=== PATIENT | male | born 1950 | race Caucasian/White ===

== ENCOUNTER 2019-10-19 09:42 | Outpatient (RCR) | payer OTHER, MEDICARE ==
[2019-10-15 10:43] VITALS: BP 136/74
[2019-10-15 11:13] LABS: BASOPHILS % (AUTO) 0 % (0-10); EOSINOPHILS # (AUTO) 0.1 10^3/uL (0.0-0.3); EOSINOPHILS % (AUTO) 2 % (0-10); HEMATOCRIT 42 % (40-54); HEMOGLOBIN 14.1 G/DL (13.3-17.7); LYMPHOCYTES # (AUTO) 1.4 X 10^3 (1.0-4.0); LYMPHOCYTES % (AUTO) 21 % (12-44); MEAN CORPUSCULAR HEMOGLOBIN 31 PG (25-34); MEAN CORPUSCULAR HGB CONC 34 G/DL (32-36); MEAN CORPUSCULAR VOLUME 93 FL (80-99); MEAN PLATELET VOLUME 12.3 FL (7.4-10.4); MONOCYTES # (AUTO) 0.6 X 10^3 (0.0-1.0); MONOCYTES % (AUTO) 8 % (0-12); NEUTROPHILS # (AUTO) 4.7 X 10^3 (1.8-7.8); NEUTROPHILS % (AUTO) 69 % (42-75); PLATELET COUNT 146 10^3/uL (130-400); RED CELL DISTRIBUTION WIDTH 13.9 % (10.0-14.5); WHITE BLOOD COUNT 6.9 10^3/uL (4.3-11.0)
[2019-10-15 11:31] LABS: BUN/CREATININE RATIO 14; CARBON DIOXIDE 24 MMOL/L (21-32); CHLORIDE 109 MMOL/L (98-107); CREATININE SERUM 0.72 MG/DL (0.60-1.30); GFR ESTIMATED > 60; GLUCOSE 130 MG/DL (70-105); POTASSIUM 3.9 MMOL/L (3.6-5.0); SODIUM 141 MMOL/L (135-145)
--- NOTE | 2019-10-15 11:41 | Diagnostic Imaging Report ---
INDICATION: Preop for a deviated nasal septum. Time of exam 11:18 AM No prior studies are available for comparison. The heart size is normal. The pulmonary vascularity is unremarkable. The lungs are clear. No infiltrate, effusion or pneumothorax is detected. Impression: No acute cardiopulmonary process is detected. Dictated by: Dictated on workstation # [id number]
[~2019-10-19] VITALS: Ht 165 cm; Wt 92.1 kg
[~2019-10-19 09:42] MED LIST: ALLO300T2 PO; AMLO10TA7 PO; ASPI-586 PO; CHOL100048 PO; CYAN250010 PO; LANS30CA PO; LISI10TA2 PO; METO100T12 PO; MULT-1136 PO; MYCO500T3 PO; NAPR220T66 PO; SIMV80TA21 PO; TACR1CAP22 PO
== END 2019-10-19 15:02 | disposition home or self-care (01) ==
LOC: PREOP 09:42
PROVIDERS: ATTEND Otolaryngology Otolaryngology/Facial Plastic Surgery
DX: Z01.810 Encounter for preprocedural cardiovascular examination (principal); Z01.811 Encounter for preprocedural respiratory examination; Z01.812 Encounter for preprocedural laboratory examination; Z11.2 Encounter for screening for other bacterial diseases; J35.3 Hypertrophy of tonsils with hypertrophy of adenoids; J34.2 Deviated nasal septum; J34.89 Other specified disorders of nose and nasal sinuses; Z11.59 Encounter for screening for other viral diseases
CPT/HCPCS: 36415; 71046; 80048; 85025; 87081; 87635; 93005

== ENCOUNTER 2019-10-22 07:18 | Day surgery (SDC) | payer OTHER, MEDICARE ==
[~2019-10-22] VITALS: Ht 165 cm; Wt 92.1 kg
[2019-10-22] VITALS (9 sets, daily range): BP systolic 134–154; BP diastolic 54–85
[2019-10-22] MEDS ORDERED: LACTATED RINGERS 1,000 ML IV PRN (07:25)
--- OUTSIDE RECORDS SUMMARY | 2019-10-22 07:26 | XMS REPORT ---
Author [facility] Medic al StaffMILENA Organization [facility] Address [address] [place], [place] [address] Phone [phone] Summary purpose TRANSITION OF CARE AUTO GENERATION Chief Complaint and Reason for Visit No authorized Reason for Visit (Admitting Diagnosis) is available for this visit . Problem list No authorized problems tracked for continuity of care are available for this vis it. Encounters No authorized problems tracked for encounter diagnoses are available for this vi sit. Medications No medications recorded for this patient visit Allergies, adverse reactions, alerts No allergy information is available for this patient. Immunizations No immunizations recorded for this patient visit Relevant diagnostic tests and/or laboratory data RESULTS Radiology Results [id number] MRI L-SPINE W/O CONT PACs Image DATE OF EXAM: Nov 18 2015 MRI 0085-MRI L SPINE WO CONT RAST : RADIOLOGY REPORT DATE OF SERVICE: 11/18/15 HISTORY: Low back pain and right leg radiculopathy. MRI LUMBAR [id number] HOURS Imaging was performed in the sagittal an d axial planes. No contrast was administered. The lumbar vertebrae show normal height and alignment. There is no fracture, spondylolysis, or spondylolist hesis. There are no lumbar marrow lesions. The upper sacrum is norm al. The conus medullaris terminates at the upper aspect of L1. At T12-L1 and L1-L2, there are Schmorl's node changes in the endplates. No posterior disc protrusion or herniati on is present. There is no canal stenosis, foraminal stenosis, or nerve r oot effacement. At L2-L3, there is disc narrowing. There are bilateral paracentral disc protrusions at this level producing effa cement of the ventral aspect of the subarachnoid space. There is mild de generative facet arthrosis. There is borderline foraminal narrowing on the left side. At L3-L4, the disc contour is normal. Th ere is moderate degenerative facet arthrosis. There is no canal steno sis, nerve root effacement, or foraminal impingement. At L4-L5, there is disc narrowing and mo derate broad posterior disc protrusion/bulging. There is moderate de generative facet arthrosis. There is no canal stenosis. There is deg enerative right-sided foraminal stenosis. At L5-S1, there is fairly large central and right paracentral disc herniation effacing the right S1 nerve r oot. There is also impingement in the right foramen. There is moderate degenerative facet arthrosis. Spinal canal is mildly stenotic related to the degenerative changes and protruding disc. 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 IMPRESSION: 1. Multilevel degenerative disc and face t changes. Bilateral paracentral disc protrusions at L2-L3 without nerve root effacement. Borderline left-sided foraminal stenosis at this level. 2. Diffuse disc bulge at L4-L5 with dege nerative facet arthrosis. Degenerative foraminal stenosis greatest on the right. 3. Large central and right paracentral d isc herniation at L5- S1 producing nerve root effacement. Right-s ided foraminal stenosis present. 4. Incidentally noted right pelvic kidney. David Escamilla MD MWYvonne/nh/ 13:53:00 / 11/01 13:56:28 cc:Miguel Law This document has been electronically Signed by: On: DATE OF EXAM: Nov 18 2015 MRI 0085-MRI L SPINE WO CONT RAST : RADIOLOGY REPORT DATE OF SERVICE: 11/18/15 HISTORY: Low back pain and right leg radiculopathy. MRI LUMBAR [id number] HOURS Imaging was performed in the sagittal an d axial planes. No contrast was administered. The lumbar vertebrae show normal height and alignment. There is no fracture, spondylolysis, or spondylolist hesis. There are no lumbar marrow lesions. The upper sacrum is norm al. The conus medullaris terminates at the upper aspect of L1. At T12-L1 and L1-L2, there are Schmorl's node changes in the endplates. No posterior disc protrusion or herniati on is present. There is no canal stenosis, foraminal stenosis, or nerve r oot effacement. At L2-L3, there is disc narrowing. There are bilateral paracentral disc protrusions at this level producing effa cement of the ventral aspect of the subarachnoid space. There is mild de generative facet arthrosis. There is borderline foraminal narrowing on the left side. At L3-L4, the disc contour is normal. Th ere is moderate degenerative facet arthrosis. There is no canal steno sis, nerve root effacement, or foraminal impingement. At L4-L5, there is disc narrowing and mo derate broad posterior disc protrusion/bulging. There is moderate de generative facet arthrosis. There is no canal stenosis. There is deg enerative right-sided foraminal stenosis. At L5-S1, there is fairly large central and right paracentral disc herniation effacing the right S1 nerve r oot. There is also impingement in the right foramen. There is moderate degenerative facet arthrosis. Spinal canal is mildly stenotic related to the degenerative changes and protruding disc. 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 IMPRESSION: 1. Multilevel degenerative disc and face t changes. Bilateral paracentral disc protrusions at L2-L3 without nerve root effacement. Borderline left-sided foraminal stenosis at this level. 2. Diffuse disc bulge at L4-L5 with dege nerative facet arthrosis. Degenerative foraminal stenosis greatest on the right. 3. Large central and right paracentral d isc herniation at L5- S1 producing nerve root effacement. Right-s ided foraminal stenosis present. 4. Incidentally noted right pelvic kidney. David Escamilla MD MWD/nh11/18/2015 13:53:00 / 11/01 13:56:28 cc:Miguel Law This document has been electronically Signed by: DAVID ESCAMILLA MD On: Nov 18 20152:29P Result Amended on 2015-11-18 at 14:29:48 . Previous status was OK. History of procedures No procedures recorded for this patient visit. Functional status No functional or cognitive status observations are available for this visit. Vital signs No authorized vital signs are available for this visit. Social history No Social History or smoking status observations were recorded for this visit. ( Unknown if ever smoked.) Treatment Plan No treatment plan text is available for this visit. Hospital discharge instructions No discharge instruction text is available for this visit.
--- OUTSIDE RECORDS SUMMARY | 2019-10-22 07:26 | XMS REPORT ---
Author Author Lawrence DÍAZ [facility] eClinicalWorks Address Unknown Phone Unavailable Care Team Providers Care Senior Java Ui Developer Name Role Phone YASMEEN DÍAZ CP Unavailable Allergies, Adverse Reactions, Alerts Substance Reaction Event Type Iodine Info Not Available Drug Allergy Problems Problem Type Condition Code Onset Dates Condition Statu s Assessment Dental examination Z01.20 Active Problem Dental examination V72.2 Active Medications Medication Code System Code Instructions Start Date End Date Status Dosage Simvastatin [facility] [address]-37 September 24, 2013 by oral route Allopurinol [facility] [address]-45 September 24, 2013 by oral route Tacrolimus [facility] [address]-44 September 24, 2013 by oral route Prograf [facility] [address]-07 September 24, 2013 by oral route Prevacid [facility] [address]-08 September 24, 2013 by oral route amlodipine [facility] 0 September 24, 2013 by ora l route Mycophenolate Mofetil [facility] [address]-30 September 24, 2013 by oral route Metoprolol Tartrate [facility] [address]-21 September 24, 2013 by oral route CellCept [facility] [address]-27 September 24, 2013 by oral route Aspirin Low Dose [facility] [address]-63 September 24, 2013 by oral route Lisinopril [facility] [address]-20 September 24, 2013 by oral route Procedures Procedure Coding System Code Date Periodontal maint procedures CPT-4 D4910 Jun 16, 2015 Vital Signs Date/Time: Jun 16, 2015 Blood Pressure Diastolic 73 mmHg Blood Pressure Systolic 137 mmHg Results No Known Results Summary Purpose eClinicalWorks Submission
--- OUTSIDE RECORDS SUMMARY | 2019-10-22 07:26 | XMS REPORT ---
Author Author [facility] Medic al StaffMILENA Organization [facility] Address [address] [place], [place] [address] Phone [phone] Summary purpose TRANSITION OF CARE AUTO GENERATION [...] visit Relevant diagnostic tests and/or laboratory data No authorized results are available for this patient visit History of procedures No procedures recorded for [...]
--- OUTSIDE RECORDS SUMMARY | 2019-10-22 07:26 | XMS REPORT ---
Author Author Lawrence Mandujano Doctor Organization [facility] [place] Address Unknown Phone Unavailable Care Team Providers Care Ski Maker Wood Name Role Phone Migration, Doctor Unavailable Unavailable PROBLEMS Type Condition ICD9-CM Code [id number] Code Onset Dates Condition S tatus SNOMED Code Problem Dental examination V72.2 Active 3 3689181 ALLERGIES No Information ENCOUNTERS Encounter Location Date Diagnosis [facility] [address] [place] [address] 15 May, 17 [facility] [address] [place] [phone] 15 Feb, 17 [facility] [address] [place] [phone] 15 Feb, 17 Dental examination Z01.20 [facility] [address] [place] [address] 31 Jan, 16 Dental examination Z01.20 [facility] [address] [place] [address] 30 Jan, [facility] [address] [place] [address] Dec, 16 Dental examination Z01.20 [facility] [address] [place] [phone] 20 Dec, 16 [facility] [address] [place] [address] 14 Sep, 16 Dental examination Z01.20 [facility] [address] [place] [address] 14 Jun, 16 [facility] [address] [place] [address] 14 Feb, 15 Dental examination V72.2 [facility] [address] [place] [phone] October, 15 Dental examination V72.2 [facility] [address] [id number] [place] [address] Sep, [facility] [address] [id number] [place] [address] Sep, [facility] [address] [id number] [place] [address] Sep, IMMUNIZATIONS No Known Immunizations SOCIAL HISTORY Never Assessed REASON FOR VISIT PLAN OF CARE VITAL SIGNS Blood pressure systolic 129 mmHg 2013-09-24 Blood pressure diastolic 66 mmHg 2013-09-24 MEDICATIONS No Known Medications RESULTS No Results PROCEDURES Procedure Date Ordered Result Body Site PROPHYLAXIS - ADULT September 24, 2013 INSTRUCTIONS MEDICATIONS ADMINISTERED No Known Medications MEDICAL (GENERAL) HISTORY Type Description Date Medical History kidney transplant Medical History back trouble Medical History dental premed Medical History gout Medical History GERD Medical History high cholesterol Medical History high blood pressure Surgical History kidney transplant 2004 Surgical History left shoulder repair - NO replacement 20 16 Surgical History right vein removed Hospitalization History surgery
--- OUTSIDE RECORDS SUMMARY | 2019-10-22 07:26 | XMS REPORT ---
Author Author Lawrence VIVEROS Organization eClinicalWorks Address Unknown Phone Unavailable Care Team Providers Care Wire Frame Maker Name Role Phone CHELA VIVEROS CP Unavailable Allergies No Known Allergies Problems Problem Type Condition Code Onset Dates Condition Statu s Problem Dental examination V72.2 Active Medications Medication Code System Code Instructions Start Date End Date Status Dosage Amoxicillin [facility] [address]-73 500 MG Orally 4 capsules one hour before dental treatment Results No Known Results Summary Purpose eClinicalWorks Submission
--- OUTSIDE RECORDS SUMMARY | 2019-10-22 07:26 | XMS REPORT ---
Author Author Lawrence Mandujano Doctor Organization [facility] [employer] Address Unknown Phone Unavailable Care Team Providers Care Bag Sewer Name Role Phone Migration, Doctor Unavailable Unavailable PROBLEMS Type Condition ICD9-CM Code [id number] Code Onset Dates Condition S tatus SNOMED Code Problem Dental examination V72.2 Active 3 0132998 ALLERGIES No Information ENCOUNTERS Encounter Location Date Diagnosis [facility] [address] [place] [address] 15 May, 17 [facility] [address] [place] [address] 15 Feb, 17 [facility] [address] [place] [address] 15 Feb, 17 Dental examination Z01.20 [facility] [address] [place] [address] 31 Jan, 16 Dental examination Z01.20 [facility] [address] [place] [address] 30 Jan, [facility] [address] [place] [address] Dec, 16 Dental examination Z01.20 [facility] [address] [place] [address] 20 Dec, 16 [facility] [address] [place] [phone] 14 Sep, 16 Dental examination Z01.20 [facility] [address] [place] [address] 14 Jun, 16 [facility] [address] [place] [address] 14 Feb, 15 Dental examination V72.2 [facility] [address] [place] [phone] October, 15 Dental examination V72.2 [facility] [address] [facility] [id number] [address] [place] [address] Sep, [facility] [address] [facility] [id number] [address] [place] [address] Sep, [facility] [address] [facility] [id number] [address] [place] [address] Sep, IMMUNIZATIONS No Known Immunizations SOCIAL HISTORY Never Assessed REASON FOR VISIT [facility] PLAN OF CARE VITAL SIGNS MEDICATIONS Medication Instructions Dosage Frequency Start Date End Date Duration S tatus Metoprolol Tartrate by oral route Sep, Active Simvastatin by oral route Sep, A ctive Aspirin Low Dose by oral route Sep, Active Tacrolimus by oral route Sep, Ac tive CellCept by oral route Sep, Acti ve Lisinopril by oral route Sep, Ac tive Prograf by oral route Sep, Activ e Prevacid by oral route Sep, Acti ve Mycophenolate Mofetil by oral route Sep, Active Allopurinol by oral route Sep, A ctive amlodipine by oral route Sep, Ac tive RESULTS No Results PROCEDURES No Known procedures INSTRUCTIONS MEDICATIONS ADMINISTERED No Known Medications MEDICAL [...]
--- OUTSIDE RECORDS SUMMARY | 2019-10-22 07:26 | XMS REPORT ---
Author Author Lawrence Mandujano Doctor Organization [facility] [place] Address Unknown Phone Unavailable Care Team Providers Care Cable Installer Repairer Name Role Phone Migration, Doctor Unavailable Unavailable PROBLEMS Type Condition ICD9-CM Code XRR69-HI Code Onset Dates Condition S tatus SNOMED Code Problem Dental examination V72.2 Active 3 [id number] ALLERGIES No Information ENCOUNTERS Encounter Location Date Diagnosis [facility] [address] [place] [address] 15 May, 17 [facility] [address] [place] [phone] 15 Feb, 17 [facility] [address] [place] [address] 15 Feb, 17 Dental examination Z01.20 [facility] [address] [place] [address] 31 Jan, 16 Dental examination Z01.20 [facility] [address] [place] [address] 30 Jan, [facility] [address] [place] [address] Dec, 16 Dental examination Z01.20 [facility] [address] [place] [address] 20 Dec, [facility] [address] [place] [address] 14 Sep, 16 Dental examination Z01.20 [facility] [address] [place] [address] 14 Jun, 16 [facility]01.20 [facility] [place] [address] [place] [address] 14 Feb, 15 Dental examination V72.2 [facility] [address] [place] [address] October, 15 Dental examination V72.2 [facility] [address] [facility] [id number] [address] [place] [address] Sep, [facility] [address] [facility] [id number] [address] [place] [phone] Sep, [facility] [address] [facility] [id number] [address] [place] [address] Sep, IMMUNIZATIONS No Known Immunizations SOCIAL HISTORY Never Assessed REASON FOR VISIT [facility] PLAN OF CARE VITAL SIGNS MEDICATIONS No Known Medications RESULTS No Results PROCEDURES No Known procedures [...]
--- OUTSIDE RECORDS SUMMARY | 2019-10-22 07:26 | XMS REPORT ---
Author Author [facility] Medic al StaffMILENA Organization [facility] Address [address], [place] [address] Phone [phone] Care Team Providers Care Alternative Financing Specialist Name Role Phone RAQUEL HYLTON PP [phone] Summary purpose TRANSITION OF CARE AUTO GENERATION [...] tests and/or laboratory data RESULTS Radiology Results [id number]:00 FOOT XRAY - 3 VIEW PACs Image DATE OF EXAM: Sep 23 2015 RAD 0649-FOOT XRAY-3 VIEW - LEFT: RADIOLOGY REPORT DATE OF SERVICE: 09/23/15 HISTORY: Left foot pain LEFT FOOT 3 [id number] HOURS There is narrowing and spurring at the f irst MTP joint. There is pes planus. Heel spur is present. There is m ild degenerative tibiotalar spurring. IMPRESSION: Osteoarthritis, small heel s pur. Pes planus. MD CHAPIN Mccabe/mt/ 09:15:00 / 09/02 09:19:29 cc:Miguel Law This document has been electronically Signed by: On: DATE OF EXAM: Sep 23 2015 RAD 0649-FOOT XRAY-3 VIEW - LEFT: RADIOLOGY REPORT DATE OF SERVICE: 09/23/15 HISTORY: Left foot pain LEFT FOOT 3 [id number] HOURS There is narrowing and spurring at the f irst MTP joint. There is pes planus. Heel spur is present. There is m ild degenerative tibiotalar spurring. IMPRESSION: Osteoarthritis, small heel s pur. Pes planus. MD CHAPIN Mccabe/tushar09/23/2015 09:15:09/02 09:19:29 cc:Miguel Law This document has been electronically Signed by: MARISOL ESCAMILLA MD On: Sep 22:19P Result Amended on 2015-09-23 at 13:19:34 . Previous status was ND. KNEE XRAY - 3 VIEW PACs Image DATE OF EXAM: Sep 23 2015 RAD 0953-KNEE XRAY-3 VIEW - RIGHT: RADIOLOGY REPORT DATE OF SERVICE: 09/23/15 HISTORY: Right knee pain RIGHT KNEE 3 [id number] HOURS There is patellofemoral narrowing and sp urring. There is very minimal spurring along the medial and lateral kanu int line. No significant medial or lateral compartmental narrowing is ev ident. Mineralization is normal. The popliteal artery is atherosclerotic. IMPRESSION: Osteoarthritis greatest in t he patellofemoral joint. MD CHAPIN Mccabe/tushar09/23/2015 09:15:09/02 09:20:12 cc:Miguel Law This document has been electronically Signed by: On: DATE OF EXAM: Sep 23 2015 RAD 0953-KNEE XRAY-3 VIEW - RIGHT: RADIOLOGY REPORT DATE OF SERVICE: 09/23/15 HISTORY: Right knee pain RIGHT KNEE 3 [id number] HOURS There is patellofemoral narrowing and sp urring. There is very minimal spurring along the medial and lateral kanu int line. No significant medial or lateral compartmental narrowing is ev ident. Mineralization is normal. The popliteal artery is atherosclerotic. IMPRESSION: Osteoarthritis greatest in t he patellofemoral joint. MD CHAPIN Mccabe/tushar09/23/2015 09:15:09/02 09:20:12 cc:Miguel Law This document has been electronically Signed by: MARISOL ESCAMILLA MD On: Sep 22:P Result Amended on 2015-09-23 at 13:19:40 . Previous status was ND. History of procedures No procedures recorded for [...]
--- OUTSIDE RECORDS SUMMARY | 2019-10-22 07:26 | XMS REPORT | CCD ---
Author MILENA Corral Organization Unknown Address [address] [place] [address] Care Team Providers Care Superintendent Geophysical Laboratory Name Role Phone SUZETTE LLANES, AUGUSTIN AGUIRRE Attphys Allergies Allergy Code Allergy Type Reaction Status No Known Drug Allergies 0 Drug allergy Active Active Medications Unknown or Not Available. Problems Unknown or Not Available. Procedures Procedure Code Procedure Type Date Repair of ruptured musculotendinous cuff [place]; [place] ; [place] [address] C[place] 04/13/2016 Arthroscopy, shoulder, surgical; debride ment, limited; (-[place] b [address] CPT 04/13/2016 Results Unknown or Not Available. Function Status Unknown or Not Available. History of Immunizations Unknown or Not Available. Plan of Treatment Unknown or Not Available. Social History Smoking Status Code Start Date End Date Never smoker [id number] Vital Signs Vital Sign Value Unit Date/Time Recent/I nitial? Weight Measured 183 [lb_av] 04/12/2016 10:36 Initial VS Height 65.5 [in_i] 04/12/2016 10:36 Initi al VS BMI (Body Mass Index) 29.99 kg/m2 04/12/2016 10 :36 Initial VS BSA (Body Surface Area) 1.96 m2 04/12/2016 10:36 Initial VS Respiratory Rate 15 /min 04/13/2016 11:58 Initial VS Heart Rate 56 /min 04/13/2016 11:58 I nitial VS O2 % BldC Oximetry 96 % 04/13/2016 11:58 Initial VS BP Systolic 151 mm[Hg] 04/13/2016 12:00 Initial VS BP Diastolic 73 mm[Hg] 04/13/2016 12:00 Initial VS BP Systolic 142 mm[Hg] 04/13/2016 12:43 Most Recent VS BP Diastolic 82 mm[Hg] 04/13/2016 12:43 Most Recent VS Respiratory Rate 14 /min 04/13/2016 12:43 Most Recent VS Heart Rate 56 /min 04/13/2016 12:43 M ost Recent VS O2 % BldC Oximetry 98 % 04/13/2016 12:43 Most Recent VS Function Status Unknown or Not Available. Goals Unknown or Not Available. ASSESSMENTS Unknown or Not Available. Health Concerns Section Unknown or Not Available.
--- OUTSIDE RECORDS SUMMARY | 2019-10-22 07:26 | XMS REPORT ---
Author Author Lawrence CHUA [facility] eClinicalWorks Address Unknown Phone Unavailable Care Team Providers Care Bargeman Name Role Phone PACO CHUA CP Unavailable Allergies No Known Allergies Problems Problem Type Condition Code Onset Dates Condition Statu s Problem Dental examination V72.2 Active Medications No Known Medications Results No Known Results Summary Purpose eClinicalWorks Submission
--- OUTSIDE RECORDS SUMMARY | 2019-10-22 07:26 | XMS REPORT ---
Author Author Lawrence STONE Organization [facility] [place] Address [address] [place] [address] Care Team Providers Care Guest Services Agent Name Role Phone AURY STONEA Unavailable PROBLEMS Type Condition ICD9-CM Code PPG08-VS Code Onset Dates Condition S tatus SNOMED Code Problem Dental examination V72.2 Active 3 [id number] ALLERGIES Substance Reaction Event Type Date Status Iodine Unknown Drug Allergy May, Active ENCOUNTERS Encounter Location Date Diagnosis [facility] [place] [address] [id number] [place] [id number] May, Dental examination Z01.20 [facility] [place] [address] [id number] [place] [address] [id number] Feb, [facility] [place] [address] [id number] [place] [address]57[address] 15 Feb, 2017 Dental examination Z01.20 [facility] [place] [address] [id number] [place] [address] [id number] 31 Jan, 2016 Dental examination Z01.20 [facility] [place] [address] [id number] [place] [address] [id number] 30 Jan, 2016 [facility] [place] [address] [id number] [place] [address] 793269 Dec, Dental examination Z01.20 [facility] [place] [address] [id number] [place] [address] 369225 Dec, [facility] [place] [address] [id number] [place] [address] [id number] 14 Sep, 2015 Dental examination Z01.20 [facility] [place] [address] [id number] [place] [address] 867394 14 Jun, 2015 Dental examination Z01.20 [facility] [place] [address] [id number] [place] [address] [id number] 14 Feb, 2015 Dental examination V72.2 [facility] [address] [id number] [place], [place] [address] [id number] October, Dental examination V72.2 [facility] [address] [facility] [id number] [place] [address] Sep, [facility] [address] [facility] [id number] [address] [place] [phone] Sep, [facility] [address] [facility] [id number] [address] [place] [phone] Sep, IMMUNIZATIONS No Known Immunizations SOCIAL HISTORY Never Assessed REASON FOR VISIT perio 3 months PLAN OF CARE Activity Details Follow Up 3 month perio maint Reason: VITAL SIGNS Blood pressure systolic 131 mmHg 2017-05-17 Blood pressure diastolic 75 mmHg 2017-05-17 MEDICATIONS Medication Instructions Dosage Frequency Start Date End Date Duration S tatus Simvastatin by oral route Sep, A ctive Amoxicillin 500 MG 4 capsules one hour before dental treatment Active amlodipine by oral route Sep, Ac tive Tacrolimus by oral route Sep, Ac tive CellCept by oral route Sep, Acti ve Allopurinol by oral route Sep, A ctive Probiotic Active D3 Adult Active Amoxicillin 500 MG 4 capsules one hour before dental treatment Active Prograf by oral route Sep, Activ e Mycophenolate Mofetil by oral route Sep, Active Prevacid by oral route Sep, Acti ve Alive [employer] Active Lisinopril by oral route Sep, Ac tive Metoprolol Tartrate by oral route Sep, Active Chondroitin Sulfate Acti ve Aspirin Low Dose by oral route Sep, Active B12 Fast Dissolve Active RESULTS No Results PROCEDURES Procedure Date Ordered Result Body Site Periodontal maint procedures May 17, 2017 INSTRUCTIONS MEDICATIONS ADMINISTERED No Known Medications MEDICAL [...]
--- OUTSIDE RECORDS SUMMARY | 2019-10-22 07:26 | XMS REPORT ---
Author Author [facility] Medic al StaffMILENA Organization [email or web address] Address [address], [place] [address] Phone [phone] Summary purpose TRANSITION OF CARE AUTO GENERATION [...] tests and/or laboratory data RESULTS Radiology Results [id number] MRI LOW EXT JT W/O CON PACs Image DATE OF EXAM: Oct 25 2015 MRI 0093-MRI LOWER EXT JOINT W/O CONTRAST- RIGHT: RADIOLOGY REPORT DATE OF SERVICE: 10/25/2015 HISTORY: Patient has medial right knee p ain and swelling, and instability x6 months with no known injury. [facility]ONANCE IMAGING OF RIGHT KNEE JOINT 1345 HOURS There is some mild increased signal in t he subchondral bone of the medial aspect of the medial femoral cond yle and also in the medial aspect of the tibial plateau area, sugge sting mild edema. No osteochondral fracture is seen. There is extensive loss of articular cartilage on the surface of the medial f emoral condyle. The patellofemoral joint is unremarkable wit h no loss of articular cartilage seen. The medial and lateral menisci hav e normal morphology and signal intensity. Anterior and posterior crucia te ligaments are intact without evidence of tear. The extensor mechanism is maintained. There is moderate joint effusion present. There i s popliteal abnormal collection of fluid measuring approximately 3.5 cm length x 1 cm AP dimension and maximum transverse dimension of 1.5 cm. There is abnormal increased signal in the deep soft tissues at the m edial aspect of the knee beginning at about mid patella and cours ing caudally to the upper level of the tibia. This is unusual without a history of trauma but suggests edema in this area. I suspect there has been some type of trauma. IMPRESSION:There is prominent loss o f articular cartilage in the medial joint compartment involving the m edial femoral condyle. There is some bone edema medially involving the m edial femoral condyle and the medial tibial plateau. Moderate joint ef fusion is seen. Menisci and ligaments appear intact. Medial and late ral collateral ligament complexes appear unremarkable. Soft tiss ue edema is seen deep in the soft tissues of the medial aspect of the knee. There is popliteal fluid collection in the semimembranous gastroc nemius bursa. Izzy Enamorado DO MW/cdj10/25/2015 15:35:00 / 0509/2015 16:01:49 cc:Clint Law This document has been electronically Signed by: On: DATE OF EXAM: Oct 25 2015 MRI 0093-MRI LOWER EXT JOINT W/O CONTRAST- RIGHT: RADIOLOGY REPORT DATE OF SERVICE: 10/25/2015 HISTORY: Patient has medial right knee p ain and swelling, and instability x6 months with no known injury. [facility]NET[facility] RESONANCE IMAGING OF RIGHT KNEE JOINT 1345 HOURS There is some mild increased signal in t he subchondral bone of the medial aspect of the medial femoral cond yle and also in the medial aspect of the tibial plateau area, sugge sting mild edema. No osteochondral fracture is seen. There is extensive loss of articular cartilage on the surface of the medial f emoral condyle. The patellofemoral joint is unremarkable wit h no loss of articular cartilage seen. The medial and lateral menisci hav e normal morphology and signal intensity. Anterior and posterior crucia te ligaments are intact without evidence of tear. The extensor mechanism is maintained. There is moderate joint effusion present. There i s popliteal abnormal collection of fluid measuring approximately 3.5 cm length x 1 cm AP dimension and maximum transverse dimension of 1.5 cm. There is abnormal increased signal in the deep soft tissues at the m edial aspect of the knee beginning at about mid patella and cours ing caudally to the upper level of the tibia. This is unusual without a history of trauma but suggests edema in this area. I suspect there has been some type of trauma. IMPRESSION:There is prominent loss o f articular cartilage in the medial joint compartment involving the m edial femoral condyle. There is some bone edema medially involving the m edial femoral condyle and the medial tibial plateau. Moderate joint ef fusion is seen. Menisci and ligaments appear intact. Medial and late ral collateral ligament complexes appear unremarkable. Soft tiss ue edema is seen deep in the soft tissues of the medial aspect of the knee. There is popliteal fluid collection in the semimembranous gastroc nemius bursa. Izzy Enamorado DO MW/cdj10/25/2015 15:35:00 / 05/09/2015 16:01:49 cc:Clint Law This document has been electronically Signed by: IZZY ENAMORADO DO On: Oct 27 20153:31P Result Amended on 2015-10-27 at 15:32:18 . Previous status was [place]. History of procedures Procedure Code Code Type Description Date Performed Performing Physician 52928 CPT-4 MRI JNT OF LWR EXTRE W/O DYE 10-25-2015 CLINT LOCKETT Functional status No functional or cognitive status [...]
--- OUTSIDE RECORDS SUMMARY | 2019-10-22 07:26 | XMS REPORT ---
Author Author Lawrence DÍAZ [facility] [employer] Address Unknown Phone Unavailable Care Team Providers Care Choral Teacher Name Role Phone YASMEEN DÍAZ CP Unavailable Allergies, Adverse Reactions, Alerts Substance Reaction Event Type Iodine Info Not Available Drug Allergy Problems Problem Type Condition Code Onset Dates Condition Statu s Assessment Dental examination Z01.20 Active Problem Dental examination V72.2 Active Medications Medication Code System Code Instructions Start Date End Date Status Dosage Prevacid [facility] [address]-26 September 24, 2013 by oral route Lisinopril [facility] [address]-88 September 24, 2013 by oral route Tacrolimus [facility] [address]-55 September 24, 2013 by oral route CellCept [facility] [address]-52 September 24, 2013 by oral route Allopurinol [facility] [address]-14 September 24, 2013 by oral route Simvastatin [facility] [address]-69 September 24, 2013 by oral route Mycophenolate Mofetil [facility] [address]-52 September 24, 2013 by oral route Prograf [facility] [address]-15 September 24, 2013 by oral route Metoprolol Tartrate [facility] [address]-44 September 24, 2013 by oral route Aspirin Low Dose [facility] [address]-79 September 24, 2013 by oral route amlodipine [facility] 0 September 24, 2013 by ora l route Procedures Procedure Coding System Code Date Periodontal maint procedures CPT-4 D4910 Dec BITEWINGS - FOUR FILMS CPT-4 D0274 December 22, 2015 PERIODIC ORAL EXAMINATION CPT-4 D0120 December 022015 Vital Signs Date/Time: December 22, 2015 Blood Pressure Diastolic 71 mmHg Blood Pressure Systolic 125 mmHg Results No Known Results Summary Purpose eClinicalWorks Submission
--- OUTSIDE RECORDS SUMMARY | 2019-10-22 07:26 | XMS REPORT ---
Author Author Lawrence CHUA Organization [facility] Address [address] [place] [address] Phone Unavailable Care Team Providers Care Fur Dry Cleaner Hand Name Role Phone PACO CHUA Unavailable Unavailable PROBLEMS Type Condition ICD9-CM Code LFI78-VZ Code Onset Dates Condition S tatus SNOMED Code Problem Dental examination V72.2 Active 3 1568835 Assessment Dental examination Z01.20 Jan, Active 32838838 ALLERGIES Substance Reaction Event Type Date Status Iodine Unknown Drug Allergy Jan, Active SOCIAL HISTORY No smoking Hx information available PLAN OF CARE VITAL SIGNS Blood pressure systolic 138 mmHg 2016-02-01 Blood pressure diastolic 70 mmHg 2016-02-01 MEDICATIONS Medication Instructions Dosage Frequency Start Date End Date Duration S tatus Allopurinol by oral route Sep, A ctive amlodipine by oral route Sep, Ac tive Lisinopril by oral route Sep, Ac tive Prevacid by oral route Sep, Acti ve Tacrolimus by oral route Sep, Ac tive Aspirin Low Dose by oral route Sep, Active Simvastatin by oral route Sep, A ctive Amoxicillin 500 MG 4 capsules one hour before dental treatment Active CellCept by oral route Sep, Acti ve Metoprolol Tartrate by oral route Sep, Active Prograf by oral route Sep, Activ e Mycophenolate Mofetil by oral route Sep, Active RESULTS No Results PROCEDURES Procedure Date Ordered Related Diagnosis Body Site AMALGAM-3 SURFACES PRIMARY/PERM Feb 01, 2016 IMMUNIZATIONS No Known Immunizations
--- OUTSIDE RECORDS SUMMARY | 2019-10-22 07:26 | XMS REPORT ---
Author Author Lawrence DÍAZ [facility] [employer] Address Unknown Phone Unavailable Care Team Providers Care Remote Control Assembler Name Role Phone YASMEEN DÍAZ CP Unavailable Allergies No Known Allergies Problems Problem Type Condition ICD-9 Code Onset Dates Condition Statu s Assessment Dental examination V72.2 Active Problem Dental examination V72.2 Active Medications No Known Medications Procedures Procedure Coding System Code Date Periodontal maint procedures CPT-4 D4910 Feb Results No Known Results Summary Purpose eClinicalWorks Submission
--- OUTSIDE RECORDS SUMMARY | 2019-10-22 07:26 | XMS REPORT ---
Author [facility] Medic al StaffMILENA Organization [facility] Address [address] [place], [place] [address] Phone [phone] Summary purpose TRANSITION OF CARE AUTO GENERATION [...] tests and/or laboratory data RESULTS Radiology Results [id number]:00 MRI L-SPINE W/O CONT PACs Image DATE OF EXAM: Nov 18 2015 MRI 0085-MRI L SPINE WO CONT RAST : RADIOLOGY REPORT DATE OF SERVICE: 11/18/15 HISTORY: Low back pain and right leg radiculopathy. MRI LUMBAR [id number] HOURS Imaging was performed in the sagittal [...] 4. Incidentally noted right pelvic kidney. David Yancey MD MWYvonne/nh/ 13:53:00 / 11/01 13:56:28 cc:Miguel Law This document has been electronically Signed by: On: DATE OF EXAM: Nov 18 2015 MRI 0085-MRI L SPINE WO CONT RAST : RADIOLOGY REPORT DATE OF SERVICE: 11/18/15 HISTORY: Low back pain and right leg radiculopathy. MRI LUMBAR [id number] HOURS Imaging was performed in the sagittal [...] 4. Incidentally noted right pelvic kidney. David Yancey MD MWD/wa/ 13:53:00 / 11/01 13:56:28 cc:Miguel Law This document has been electronically Signed by: DAVID YANCEY MD On: Nov 18 20152:29P Result Amended on 2015-11-18 at 14:29:48 . Previous status was [place]. History of procedures Procedure Code Code Type Description Date Performed Performing Physician 14561 CPT-4 MRI LUMBAR SPINE W/O DYE 11-18-2015 B SWAPNA LOCKETT Functional status No functional or cognitive [...]
--- OUTSIDE RECORDS SUMMARY | 2019-10-22 07:27 | XMS REPORT | Referral Summary ---
Author Organization Unknown Address Unknown Phone Unavailable Care Team Providers Care Merchandise Complaint Adjuster Name Role Phone Garrison Sandoval PCP Encounter VC Date(s): 07/14/14 - 07/14/14 [facility] [address] [place] [address] [phone] Discharge Disposition: Home or Self Care Attending Physician: Nabor Azar MD Admitting Physician: Nabor Azar MD Vital Signs Most recent to 1 oldest [Reference Range]: Temperature Skin 36.3 degC [36-37 degC] (07/14/14 12:40 PM) Peripheral Pulse 61 bpm Rate [60-100 bpm] (07/14/14 2:25 PM) Heart Rate Monitored 77 bpm [60-100 bpm] (07/14/14 12:40 PM) Respiratory Rate 16 br/min [14-20 br/min] (07/14/14 2:25 PM) Blood Pressure 126/65 mmHg [90-140/60-90 mmHg] (07/14/14 2:25 PM) Mean Arterial 94 mmHg Pressure, Cuff (07/14/14 12:40 PM) Most recent to 1 oldest [Reference Range]: SpO2 93 % (07/14/14 1:25 PM) Problem List Condition Effective Dates Status Health Status Informan t Benign essential Active hypertension (disorder)(Confirmed ) HTN Active patient (hypertension)(Confi rmed) Pulmonary Active tuberculosis (disorder)(Confirmed ) Restless legs Active (disorder)(Confirmed ) Spinal stenosis of Active lumbar region (disorder)(Confirmed ) Allergies, Adverse Reactions, Alerts Substance Reaction Severity Status colchicine Diarrhea Active iodine Cannot take due to kidney tx Active Medications No data available for this section Results Hematology Most recent to 1 oldest [Reference Range]: WBC [4.8-10.8 K/uL] 5.9 K/uL (07/14/14 6:50 AM) RBC [4.60-6.20 M/uL] 4.50 M/uL *LOW* (07/14/14 6:50 AM) Hgb [14.0-18.0 13.8 gm/dL gm/dL] *LOW* (07/14/14 6:50 AM) Hct [42.0-52.0 %] 42.0 % (07/14/14 6:50 AM) MCV [82.0-99.0 fL] 93.3 fL (07/14/14 6:50 AM) MCH [27.0-32.0 pg] 30.7 pg (07/14/14 6:50 AM) MCHC [32.0-36.0 32.9 gm/dL gm/dL] (07/14/14 6:50 AM) RDW [11.5-14.5 %] 13.1 % (07/14/14 6:50 AM) Platelet [150-400 139 K/uL K/uL] *LOW* (07/14/14 6:50 AM) MPV [9.4-12.3 fL] 12.1 fL (07/14/14 6:50 AM) Immature 0.2 % Granulocytes (07/14/14 6:50 AM) [0.0-1.0 %] Neutrophils [51-75 64 % %] (07/14/14 6:50 AM) Lymphocytes [20-46 26 % %] (07/14/14 6:50 AM) Monocytes [4-11 %] 8 % (07/14/14 6:50 AM) Eosinophils [0-4 %] 2 % (07/14/14 6:50 AM) Basophils [0-2 %] 0 % (07/14/14 6:50 AM) Neutro Absolute 3.78 THOUS [1.90-7.00 THOUS] (07/14/14 6:50 AM) Lymph Absolute 1.56 THOUS [0.80-3.30 THOUS] (07/14/14 6:50 AM) Knox Absolute 0.48 THOUS [0.30-1.00 THOUS] (07/14/14 6:50 AM) Eos Absolute 0.09 THOUS [0.00-0.50 THOUS] (07/14/14 6:50 AM) Baso Absolute 0.02 THOUS [0.00-0.20 THOUS] (07/14/14 6:50 AM) Nucleated RBC 0.0 /100 WBC Automated [0 /100 (07/14/14 6:50 AM) WBC] Chemistry Most recent to 1 oldest [Reference Range]: Sodium Lvl [136-144 139 mEq/L mEq/L] (07/14/14 6:50 AM) Potassium Lvl 3.9 mEq/L [3.6-5.1 mEq/L] (07/14/14 6:50 AM) Chloride [99-109 107 mEq/L mEq/L] (07/14/14 6:50 AM) CO2 [22-32 mEq/L] 24 mEq/L (07/14/14 6:50 AM) AGAP [3-20] 8 (07/14/14 6:50 AM) BUN [4-20 mg/dL] 8 mg/dL (07/14/14 6:50 AM) Glucose Lvl [70-100 107 mg/dL mg/dL] *HI* (07/14/14 6:50 AM) Creatinine Lvl 0.80 mg/dL [0.64-1.27 mg/dL] (07/14/14 6:50 AM) eGFR [>60] >60 2 (07/14/14 6:50 AM) Calcium Lvl 9.4 mg/dL [8.6-10.0 mg/dL] (07/14/14 6:50 AM) Albumin Lvl [3.5-4.8 3.9 gm/dL gm/dL] (07/14/14 6:50 AM) Total Protein 6.4 gm/dL [6.1-7.9 gm/dL] (07/14/14 6:50 AM) Globulin [1.9-4.3 2.5 gm/dL gm/dL] (07/14/14 6:50 AM) ALT [17-63 unit/L] 8 unit/L *LOW* (07/14/14 6:50 AM) AST [15-41 unit/L] 20 unit/L (07/14/14 6:50 AM) Alk Phos [26-104 55 unit/L unit/L] (07/14/14 6:50 AM) Bili Total [0.2-1.2 0.8 mg/dL 1 mg/dL] (07/14/14 6:50 AM) Blood Glucose, 99 mg/dL Capillary [70-100 (07/14/14 6:50 AM) mg/dL] 1Result Comment: Naproxen, specifically the metabolite O-desmethylnaproxen, may cause spurious elevation in Total Bilirubin levels. 2Result Comment: Multiply eGFR results by 1.21 for race. Immunizations No data available for this section Procedures Procedure Date Related Diagnosis Body Site Arterial Venous AV Fistula Ligation Arm 07/14/14 (Right, Upper Extremity)1 AVF RIGHT ARM BX LEFT AXILLA Colonoscopy NEPHRECTOMY X 2 PENILE IMPLANT PENILE IMPLANT REVISION REVISION AVF RIGHT KIDNEY TRANSPLANT 1auto-populated from documented surgical case Social History Social History Type Response Smoking Status Never smoker Assessment and Plan No data available for this section
--- OUTSIDE RECORDS SUMMARY | 2019-10-22 07:27 | XMS REPORT ---
Author Author Lawrence VIVEROS Organization [facility] [place] Address [address] [place] [address] Care Team Providers Care Staff Physician Name Role Phone CHELA VIVEROS Unavailable PROBLEMS Type Condition ICD9-CM Code [id number] Code Onset Dates Condition S tatus SNOMED Code Problem Dental examination V72.2 Active 3 6168737 ALLERGIES No Information ENCOUNTERS Encounter Location Date Diagnosis [facility] [place] [address] [id number] [place], [place] [address] 15 May, 2017 Dental examination Z01.20 [facility] [place] [address] [id number] [place] [id number] 15 Feb, 2017 [facility] [place] [address] [id number] [place] [address]82[address] Feb, Dental examination Z01.20 [facility] [place] [address] [id number] [place] [id number] 31 Jan, 2016 Dental examination Z01.20 [facility] [place] [address] [id number] [place] [id number] 30 Jan, 2016 [facility] [place] [address] [id number] [place] [address] 7811[address] Dec, Dental examination Z01.20 [facility] [place] [address] [id number] [place] [address]98[address] 20 Dec, 2015 [facility] [place] [address] [id number] [place] [id number] 14 Sep, 2015 Dental examination Z01.20 [facility] [place] [address] [id number] [place] [address] 14 Jun, 2015 Dental examination Z01.20 [facility] [place] [address] [id number] [place], [place] [address]267 14 Feb, 2015 Dental examination V72.2 [facility] [place] [address] [id number] [place], [place] [id number] October, Dental examination V72.2 [facility] [address] [facility] [id number] [address] [place] [phone] Sep, [facility] [address] [facility] [id number] [address] [place] [phone] Sep, [facility] [address] [facility] [id number] [address] [place] [phone] Sep, IMMUNIZATIONS No Known Immunizations SOCIAL HISTORY Never Assessed REASON FOR VISIT need more premeds PLAN OF CARE VITAL SIGNS MEDICATIONS Medication Instructions Dosage Frequency Start Date End Date Duration S tatus Amoxicillin 500 MG 4 capsules one hour before dental treatment Active RESULTS No Results PROCEDURES No Known procedures [...]
--- OUTSIDE RECORDS SUMMARY | 2019-10-22 07:27 | XMS REPORT ---
Author Author Lawrence STONE Organization [facility] [place] Address [address] [place] [address] Care Team Providers Care Java Analyst Name Role Phone AURY STONEA Unavailable PROBLEMS Type Condition ICD9-CM Code BCR05-OW Code Onset Dates Condition S tatus SNOMED Code Problem Dental examination V72.2 Active 3 2539029 ALLERGIES Substance Reaction Event Type Date Status Iodine Unknown Drug Allergy Feb, Active ENCOUNTERS Encounter Location Date Diagnosis [facility] [place] [address] [id number] [place] [address] May, Dental examination Z01.20 [facility] [place] [address] [id number] [place] [address] Feb, [facility] [place] [address] [id number] [place] [address] Feb, Dental examination Z01.20 [facility] [place] [address] [id number] [place], [place] [id number] 31 Jan, 2016 Dental examination Z01.20 [facility] [place] [address] [id number] [place] [address]17[address] 30 Jan, 2016 [facility] [place] [address] [id number] [place] [address] 6859[address] Dec, Dental examination Z01.20 [facility] [place] [address] [id number] [place], [place] [address] Dec, [facility] [place] [address] [id number] [place] [address] 14 Sep, 2015 Dental examination Z01.20 [facility] [place] [address] [id number] [place] [id number] 14 Jun, 2015 Dental examination Z01.20 [facility] [place] [address] [id number] [place] [address]25[address] 14 Feb, 2015 Dental examination V72.2 [facility] [address] [id number] [place], [place] [address]030[address] October, Dental examination V72.2 [facility] [address] [facility] [id number] [address] [address] Sep, [facility] [address] [facility] [id number] [address] [address] Sep, [facility] [address] [facility] [id number] [address] [address] Sep, IMMUNIZATIONS No Known Immunizations SOCIAL HISTORY Never Assessed REASON FOR VISIT MARU PLAN OF CARE Activity Details Follow Up 3 month perio maint Reason: VITAL SIGNS Blood pressure systolic 116 mmHg 2017-02-15 Blood pressure diastolic 66 mmHg 2017-02-15 MEDICATIONS Medication Instructions Dosage Frequency Start Date End Date Duration S tatus Aspirin Low Dose by oral route Sep, Active Prevacid by oral route Sep, Acti ve amlodipine by oral route Sep, Ac tive Amoxicillin 500 MG 4 capsules one hour before dental treatment Active Metoprolol Tartrate by oral route Sep, Active CellCept by oral route Sep, Acti ve Allopurinol by oral route Sep, A ctive Simvastatin by oral route Sep, A ctive Prograf by oral route Sep, Activ e Lisinopril by oral route Sep, Ac tive Mycophenolate Mofetil by oral route Sep, Active Tacrolimus by oral route Sep, Ac tive RESULTS No Results PROCEDURES Procedure Date Ordered Result Body Site PERIODIC ORAL EXAMINATION Feb 15, 2017 BITEWINGS - FOUR FILMS Feb 15, 2017 Periodontal maint procedures Feb 15, 2017 INSTRUCTIONS MEDICATIONS ADMINISTERED No Known Medications MEDICAL (GENERAL) HISTORY Type Description Date Medical History kidney transplant Medical History back trouble Medical History dental premed Medical History gout Medical History GERD Medical History high cholesterol Medical History high blood pressure Surgical History kidney transplant 2005 Surgical History left shoulder repair - NO replacement 20 16 Surgical History right vein removed Hospitalization History surgery
[2019-10-22] MEDS ORDERED: proPOfol 200 MG/20 ML (DIPRIVAN) VIAL IV ONE (07:52)
[2019-10-22] MEDS ORDERED: fentaNYL INJECTION 100 MCG/2 ML AMP ONE (07:52)
[2019-10-22] MEDS ORDERED: ONDANSETRON 4 MG/2 ML (SDV) Z0FRAN ONE (07:52)
[2019-10-22] MEDS ORDERED: ROCURONIUM 10 MG/ML 5 ML SYRINGE IV ONE (07:52)
[2019-10-22] MEDS ORDERED: MIDAZOLAM 2 MG/2 ML (VERSED) VIAL ONE (07:52)
[2019-10-22] MEDS ORDERED: LIDOCAINE PF 2% 5 ML (XYLOCAINE) VIAL ONE (07:52)
[2019-10-22] MEDS ORDERED: PHENYLEPHRINE 0.5% NASAL SPR (NEO-SYNEPHRINE) REG ONE (07:53)
[2019-10-22] MEDS ORDERED: LIDOCAINE/EPI 1%-1:100,000 (XYLOCAINE) 20ML ONE ×2 (07:53→08:12)
--- NOTE | 2019-10-22 09:20 | Progress Note-Pre Operative ---
Pre-Operative Progress Note H&P Reviewed The H&P was reviewed, patient examined and no changes noted. Date Seen by Provider: October 22, 2019 Time Seen by Provider: 09:15 Date H&P Reviewed: October 22, 2019 Time H&P Reviewed: 09:15 Pre-Operative Diagnosis: Deviated Nasal Septum, Bilat REd of Inf Turbs MARISOL ORTIZ MD October 22, 2019 09:20
[2019-10-22] MEDS: COCAINE HCL 4% 2 ML SYR ONE ×2 (09:44→10:48)
[2019-10-22] MEDS ORDERED: DEXAMETHASONE 10 MG/ML (DECADRON) 1 ML VIAL ONE (10:08)
[2019-10-22] MEDS ORDERED: GLYCOPYRROLATE 0.2 MG/ML (ROBINUL) 2 ML VIAL ONE (10:22)
[2019-10-22] MEDS ORDERED: NEOSTIGMINE 3 MG/3 ML VIAL ONE (10:22)
[2019-10-22] MEDS ORDERED: SEVOFLURANE (ULTANE) 15 ML INHAL SOLN ONE (10:24)
[2019-10-22] MEDS ORDERED: D5 1/2 NS W/KCL 20 MEQ/L 1,000 ML IV SCH (10:35)
--- NOTE | 2019-10-22 10:35 | Progress Note-Post Operative ---
Post-Operative Progess Note Surgeon (s)/Hockey Player (s) Surgeon MARISOL ORTIZ MD Hockey Player n/a Pre-Operative Diagnosis Deviated Nasal Septum, Bilat REd of Inf Turbs Post-Operative Diagnosis same Post-Op Procedure Note Date of Procedure: October 22, 2019 Name of Procedure Performed: Nasal Seprtoplasty, Bilateral Red of Inf Turbs Description & Findings Description and Findings: n/a Anesthesia Type get Estimated Blood Loss minimal Packing none. Specimen(s) collected/removed nasal septum MARISOL ORTIZ MD October 22, 2019 10:35
[2019-10-22] MEDS ORDERED: ACETAMINOPHEN 325 MG TABLET PO PRN (10:45)
[2019-10-22] MEDS ORDERED: HYDROmorphone 2 MG/ML VIAL (DILAUDID) IV ONE (10:45)
[2019-10-22] MEDS ORDERED: ONDANSETRON 4 MG/2 ML (SDV) Z0FRAN IVP PRN (10:45)
[2019-10-22] MEDS ORDERED: HYDROcodone/APAP 5 MG/325 MG (LORTAB) TAB PO PRN (10:45)
[2019-10-22] MEDS ORDERED: morphine INJ 10 MG/ML 1ML (SYR OR VIAL) IVP ONE (10:45)
[2019-10-22] MEDS ORDERED: PROMETHAZINE INJ 25 MG/ML (PHENERGAN) AMP IVP PRN (10:45)
--- NOTE | 2019-10-22 11:08 | Anesthesia-General Post-Op ---
General Patient Condition Mental Status/LOC: Same as Preop Cardiovascular: Satisfactory Nausea/Vomiting: Absent Respiratory: Satisfactory Pain: Controlled Complications: Absent Post Op Complications Complications None Follow Up Care/Instructions Patient Instructions None needed. Anesthesia/Patient Condition Patient Condition Patient is doing well, no complaints, stable vital signs, no apparent adverse anesthesia problems. No complications reported per nursing. RACHNA CASIANO CRNA October 22, 2019 11:08
[2019-10-22] MEDS ORDERED: HYDR-83 PO (11:54)
[2019-10-22] MEDS ORDERED: AMOX-355 PO (11:54)
== END 2019-10-22 12:50 | disposition home or self-care (01) ==
LOC: SDC 07:18
PROVIDERS: ATTEND Otolaryngology Otolaryngology/Facial Plastic Surgery
DX: J34.2 Deviated nasal septum (principal); J34.89 Other specified disorders of nose and nasal sinuses; J34.3 Hypertrophy of nasal turbinates; R09.81 Nasal congestion; M19.90 Unspecified osteoarthritis, unspecified site; Z94.0 Kidney transplant status; Z79.899 Other long term (current) drug therapy
CPT/HCPCS: 88300